=== PATIENT | male | born 2005 | race Caucasian/White ===

== ENCOUNTER 2023-08-29 07:01 | Outpatient (CLI) | payer BC, SELFPAY ==
--- NOTE | 2023-08-29 07:15 | CRLHL7_ITS ---
For Patients: As a result of the Century Cures Act, medical imaging exams and procedure reports are released immediately into your electronic medical record. You may view this report before your referring provider. If you have questions, please contact your health care provider. Indication: Upper extremity weakness. Technique: Noncontrast sagittal T1, axial FLAIR, T2, diffusion weighted sequences are provided. No comparisons. Findings: The ventricles, sulci and gyri are normal size, shape and contour for age. The midline structures are centrally located with no evidence of shift. There are no suspicious intra or extra-axial fluid collections. No region of restricted diffusion. Expected flow voids in the cavernous carotids and basilar artery. Impression: 1. No radiographic evidence of acute intracranial abnormalities. Dictated by Amilcar Peace MD @ 08/29/2023 8:44:52 AM (Electronically Signed)
== END 2023-08-29 07:02 | disposition home or self-care (01) ==
LOC: MRI 07:07
PROVIDERS: PCP Physician Assistant Medical; Visit Provider Physician Assistant Medical
DX: R29.898 Other symptoms and signs involving the musculoskeletal system (principal)
CPT/HCPCS: 70551